=== PATIENT | female | born 1990 | race Caucasian/White ===

== ENCOUNTER 2017-11-05 08:52 | Emergency (ER) | payer MEDICAID ==
[2017-11-05] MEDS ORDERED: Ondansetron 4 MG/2 ML SDV IVPUSH ONE (09:41)
[2017-11-05] MEDS ORDERED: Sodium Chloride 0.9% 10 ML Syringe FLUSH PRN (09:41)
[2017-11-05] MEDS ORDERED: Sodium Chloride 0.9% 1,000 ML IV SCH (09:45)
--- NOTE | 2017-11-05 10:27 | EDM.PDOC ---
ED HPI GENERAL MEDICAL PROBLEM - General Chief Complaint: Headache Stated Complaint: HEADACHE/WEAKNESS Time Seen by Provider: 11/05/17 09:42 Source of Information: Reports: Patient, RN Notes Reviewed - History of Present Illness INITIAL COMMENTS - FREE TEXT/NARRATIVE: 27-year-old female is in with onset of headache abdominal discomfort, fever, chills, generalized achiness about 3 or 4 days ago. She then felt better a day later and then started becoming more ill again yesterday. She does continue with the headache, chills, achiness but also now has had severe nausea and frequent repetitive diarrhea. Of interest she has 2 children at home have also have had very severe repetitive diarrhea with them becoming ill about 3 days ago. She continues to feel very nauseated today. Her mouth is getting dry. She feels weak dizzy lightheaded when standing. She had many episodes of diarrhea yesterday, none yet today. Headache Pain Score (Numeric/FACES): 8 - Related Data Allergies Allergy/AdvReac Type Severity Reaction Status Date / Time Penicillins Allergy Hives Verified 11/05/17 09:06 Home Meds: Home Meds . [No Known Home Meds] 11/05/17 [History] Past Medical History - Past Health History Medical/Surgical History: Denies Medical/Surgical History Psychiatric History: Reports: Anxiety, Depression - Past Surgical History GI Surgical History: Reports: Cholecystectomy Female Surgical History: Reports: Section Musculoskeletal Surgical History: Reports: Other (See Below) Other Musculoskeletal Surgeries/Procedures:: knee surgery Social & Family History - Family History Family Medical History: Noncontributory - Tobacco Use Smoking Status *Q: Never Smoker - Recreational Drug Use Recreational Drug Use: No ED ROS GENERAL - Review of Systems Review Of Systems: See Below Constitutional: Reports: Fever (Low-grade, gone), Chills HEENT: Denies: Rhinitis, Throat Pain Respiratory: Denies: Shortness of Breath, Pleuritic Chest Pain, Cough Cardiovascular: Denies: Chest Pain GI/Abdominal: Reports: Abdominal Pain, Diarrhea (Mild intermittent cramping, gone frequent, watery, repetitive, severe yesterday, much better today), Decreased Appetite, Nausea. Denies: Vomiting Musculoskeletal: Reports: Other Skin: Denies: Rash (Generalized achiness) Neurological: Reports: Dizziness, Headache - Physical Exam Exam: See Below General Appearance: Alert, Mild Distress Eye Exam: Bilateral Eye: PERRL Throat/Mouth: Other (Oral mucosa dry) Head Exam: Atraumatic. No: Facial Swelling Neck: Supple, Full Range of Motion Respiratory/Chest: No Respiratory Distress, Lungs Clear, Normal Breath Sounds Cardiovascular: Tachycardia GI/Abdominal: Soft, Non-Tender. No: Guarding Neuro Exam (Abbreviated): Alert, Oriented, No Motor/Sensory Deficits Back Exam: Normal Inspection Extremities: Normal Inspection, Normal Range of Motion Psychiatric: Normal Affect, Normal Mood Skin Exam: Warm, Dry, Normal Color, No Rash Course - Vital Signs Last Recorded V/S: Last Vital Signs Temp 96.7 F 11/05/17 11:20 Pulse 102 H 11/05/17 09:01 Resp 15 11/05/17 11:20 BP 137/84 11/05/17 11:20 Pulse Ox 98 11/05/17 11:20 Orthostatic Blood Pressure [ 135/108 Standing] Orthostatic Blood Pressure [ 146/102 Sitting] Orthostatic Blood Pressure [ 154/93 Supine] - Orders/Labs/Meds Orders: Active Orders 24 hr Category Date Time Status Peripheral IV Care [RC] . DIRECTED Care 11/05/17 09:42 Active Ketorolac [Toradol] Med 11/05/17 11:15 Active 30 mg IVPUSH ONETIME Sodium Chloride 0.9% [Normal Saline] 1,000 ml Med 11/05/17 09:45 Active IV ONETIME Sodium Chloride 0.9% [Saline Flush] Med 11/05/17 09:41 Active 10 ml FLUSH ASDIRECTED PRN Peripheral IV Insertion Adult [OM.PC] Stat Oth 11/05/17 09:41 Ordered Medication Orders Sodium Chloride (Normal Saline) 1,000 mls @ 999 mls/hr IV ONETIME KARLOS Last Admin: 11/05/17 10:01 Dose: 999 mls/hr Ketorolac Tromethamine (Toradol) 30 mg IVPUSH ONETIME KARLOS Last Admin: 11/05/17 11:14 Dose: 30 mg Sodium Chloride (Saline Flush) 10 ml FLUSH ASDIRECTED PRN PRN Reason: Keep Vein Open Last Admin: 11/05/17 09:45 Dose: 10 ml Labs: Laboratory Tests 11/05/17 11/05/17 Range/Units 08:30 08:30 WBC 13.50 H (3.98-10.04) K/mm3 RBC 4.23 (3.98-5.22) M/mm3 Hgb 11.5 (11.2-15.7) gm/L Hct 36.5 (34.1-44.9) % MCV 86.3 (79.4-94.8) fl MCH 27.2 (25.6-32.2) pg MCHC 31.5 L (32.2-35.5) g/dl RDW Std Deviation 38.7 (36.4-46.3) fL Plt Count 434 H (182-369) K/mm3 MPV 9.2 L (9.4-12.3) fl Neut % (Auto) 82.9 H (34.0-71.1) % Lymph % (Auto) 10.8 L (19.3-51.7) % Cecil % (Auto) 5.2 (4.7-12.5) % Eos % (Auto) 0.6 L (0.7-5.8) Baso % (Auto) 0.2 (0.1-1.2) % Neut # (Auto) 11.19 H (1.56-6.13) K/mm3 Lymph # (Auto) 1.46 (1.18-3.74) K/mm3 Cecil # (Auto) 0.70 H (0.24-0.36) K/mm3 Eos # (Auto) 0.08 (0.04-0.36) K/mm3 Baso # (Auto) 0.03 (0.01-0.08) K/mm3 Sodium 138 (136-145) mEq/L Potassium 3.8 (3.5-5.1) mEq/L Chloride 101 (98-107) mEq/L Carbon Dioxide 25 (21-32) mEq/L Anion Gap 15.8 H (5-15) BUN 7 (7-18) mg/dL Creatinine 0.7 (0.55-1.02) mg/dL Est Cr Clr Drug Dosing 129.39 mL/min Estimated GFR (MDRD) > 60 (>60) mL/min BUN/Creatinine Ratio 10.0 L (14-18) Glucose 93 (74-106) mg/dL Calcium 8.4 L (8.5-10.1) mg/dL Total Bilirubin 0.3 (0.2-1.0) mg/dL AST 24 (15-37) U/L ALT 43 (14-59) U/L Alkaline Phosphatase 116 (46-116) U/L Total Protein 7.7 (6.4-8.2) g/dl Albumin 3.4 (3.4-5.0) g/dl Globulin 4.3 gm/dL Albumin/Globulin Ratio 0.8 L (1-2) Meds: Medications Generic Name Dose Route Start Last Admin Trade Name Freq PRN Reason Stop Dose Admin Sodium Chloride 1,000 mls @ 999 mls/hr 11/05/17 09:45 11/05/17 10:01 Normal Saline IV 999 mls/hr ONETIME KARLOS Administration Ketorolac Tromethamine 30 mg 11/05/17 11:15 11/05/17 11:14 Toradol IVPUSH 30 mg ONETIME KARLOS Administration Sodium Chloride 10 ml 11/05/17 09:41 11/05/17 09:45 Saline Flush FLUSH 10 ml ASDIRECTED PRN Administration Keep Vein Open Discontinued Medications Generic Name Dose Route Start Last Admin Trade Name Freq PRN Reason Stop Dose Admin Diphenhydramine HCl 25 mg 11/05/17 11:06 11/05/17 11:14 Benadryl IVPUSH 11/05/17 11:07 25 mg ONETIME ONE Administration Metoclopramide HCl 10 mg 11/05/17 11:06 11/05/17 11:14 Reglan IVPUSH 11/05/17 11:07 10 mg ONETIME ONE Administration Ondansetron HCl 4 mg 11/05/17 09:41 11/05/17 10:02 Zofran IVPUSH 11/05/17 09:42 4 mg ONETIME ONE Administration - Re-Assessments/Exams Free Text/Narrative Re-Assessment/Exam: 11/05/17 11:59 Feeling quite a lot better after 1 L of IV fluid, Zofran, Reglan, Benadryl, and Toradol IV. She is drinking small sips of water. She has had to void. Her mouth feels less dry. She does feel up to going home. Discharge instructions as documented. Departure - Departure Time of Disposition: 12:00 Disposition: Home, Self-Care 01 Condition: Fair Clinical Impression: Viral syndrome, Dehydration Headache Qualifiers: Headache type: unspecified Headache chronicity pattern: acute headache Intractability: not intractable Qualified Code(s): R51 - Headache Diarrhea Qualifiers: Diarrhea type: unspecified type Qualified Code(s): R19.7 - Diarrhea, unspecified - Discharge Information Referrals: Susan Gregorio, PROGRAM COORDINATOR [employer]UCATION [Primary Care Provider] - Forms: ED Department Discharge Additional Instructions: Clear liquids only until late this evening or even better tomorrow morning. Than very careful bland diet as tolerated. Begin probiotic and take that 2-3 times daily for the next week. Clinic if not much better within 2-3 days as expected. Return to ED if symptoms worsening in any way. - My Orders Last 24 Hours: My Active Orders 11/05/17 09:41 Sodium Chloride 0.9% [Saline Flush] 10 ml FLUSH ASDIRECTED PRN Peripheral IV Insertion Adult [OM.PC] Stat 11/05/17 09:42 Peripheral IV Care [RC] . DIRECTED 11/05/17 09:45 Sodium Chloride 0.9% [Normal Saline] 1,000 ml IV ONETIME 11/05/17 11:15 Ketorolac [Toradol] 30 mg IVPUSH ONETIME - Assessment/Plan Last 24 Hours: My Active Orders 11/05/17 09:41 Sodium Chloride 0.9% [Saline Flush] 10 ml FLUSH ASDIRECTED PRN Peripheral IV Insertion Adult [OM.PC] Stat 11/05/17 09:42 Peripheral IV Care [RC] . DIRECTED 11/05/17 09:45 Sodium Chloride 0.9% [Normal Saline] 1,000 ml IV ONETIME 11/05/17 11:15 Ketorolac [Toradol] 30 mg IVPUSH ONETIME
[2017-11-05] MEDS ORDERED: Metoclopramide 10 MG/2 ML SDV IVPUSH ONE (11:06)
[2017-11-05] MEDS ORDERED: diphenhydrAMINE 50 MG/ML SDV IVPUSH ONE (11:06)
[2017-11-05] MEDS ORDERED: Ketorolac 30 MG/ML SDV IVPUSH SCH (11:15)
== END 2017-11-05 12:10 | disposition home or self-care (01) ==
LOC: JD.ED 08:52
DX: B34.9 Viral infection, unspecified (principal); E86.0 Dehydration; R51 Headache; R19.7 Diarrhea, unspecified; Z88.0 Allergy status to penicillin
CPT/HCPCS: 36415; 80053; 85025; 96361; 96374; 96375; 99285; J1200; J1885; J2405; J2765; J7040; J7050; 99284

== ENCOUNTER 2019-11-05 19:25 | Emergency (ER) | payer BC, MEDICAID ==
[2019-11-05] MEDS ORDERED: Dexamethasone 10 MG/ML SDV IM ONE (20:02)
[2019-11-05] MEDS ORDERED: Ketorolac 60 MG/2 ML SDV IM ONE (20:02)
--- NOTE | 2019-11-05 20:14 | EDM.PDOC ---
ED HPI GENERAL MEDICAL PROBLEM - General Chief Complaint: Respiratory Problem Stated Complaint: FEVER/BODY ACHES/RESP PROBLEMS Time Seen by Provider: 11/05/19 19:44 Source of Information: Reports: Patient, RN Notes Reviewed History Limitations: Reports: No Limitations - History of Present Illness INITIAL COMMENTS - FREE TEXT/NARRATIVE: Patient is a 29-year-old female who presents to the ED for the evaluation of fever/body aches breathing. Patient states she was seen at the clinic today, and she was positive for strep at this time. She was started on a Z-Hal for this. She is complaining of a continued sore throat, fever, generalized body aches, she is denies any sort of cough, or any nausea or vomiting. She has been using an "obscene" amount of Tylenol for pain relief and this is not provided much relief. Patient has not tried any ibuprofen at home. 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 [No Known Home Meds] 11/05/17 [History] Past Medical History Psychiatric History: Reports: Anxiety, Depression - Past Surgical History GI Surgical History: Reports: Cholecystectomy Female Surgical History: Reports: Section Musculoskeletal Surgical History: Reports: Other (See Below) Other Musculoskeletal Surgeries/Procedures:: knee surgery Social & Family History - Family History Family Medical History: Noncontributory - Tobacco Use Smoking Status *Q: Never Smoker - Caffeine Use Caffeine Use: Reports: Soda - Recreational Drug Use Recreational Drug Use: No ED ROS GENERAL - Review of Systems Review Of Systems: See Below Constitutional: Reports: Fever, Chills, Malaise (generalized), Decreased Appetite HEENT: Reports: Throat Pain (ongoing with difficulty swallowing d/t pain) Respiratory: Denies: Shortness of Breath Cardiovascular: Reports: Chest Pain GI/Abdominal: Denies: Abdominal Pain, Constipation, Diarrhea, Nausea, Vomiting Neurological: Denies: Headache ED EXAM, GENERAL - Physical Exam Exam: See Below Exam Limited By: No Limitations General Appearance: Alert, WD/WN, No Apparent Distress Eye Exam: Bilateral Eye: EOMI, Normal Inspection, PERRL Ears: Normal External Exam, Normal Canal, Hearing Grossly Normal, Normal TMs Throat/Mouth: Normal Inspection, Normal Lips, Normal Teeth, Normal Gums, Normal Oropharynx (erythematous oropharynx bilateral swelling noted, pt has slight muffled voice.), Normal Voice, No Airway Compromise Head: Atraumatic, Normocephalic Neck: Normal Inspection Respiratory/Chest: No Respiratory Distress, Lungs Clear, Normal Breath Sounds, No Accessory Muscle Use, Chest Non-Tender Cardiovascular: Normal Peripheral Pulses, Regular Rate, Rhythm, No Murmur Peripheral Pulses: 3+: Radial (L), Radial (R) Extremities: Normal Inspection, Normal Capillary Refill Neurological: Alert, Oriented, Normal Cognition, No Motor/Sensory Deficits Psychiatric: Normal Affect, Normal Mood Skin Exam: Warm, Dry, Intact, Normal Color, No Rash Course - Vital Signs Last Recorded V/S: Last Vital Signs Temp 101.5 F H 11/05/19 19:40 Pulse 125 H 11/05/19 19:40 Resp 20 11/05/19 19:40 BP 129/75 11/05/19 19:40 Pulse Ox 100 11/05/19 19:40 - Orders/Labs/Meds Orders: Active Orders 24 hr Category Date Time Status INFLUENZA A+B AG SCREEN [RM] Stat Lab 11/05/19 19:44 Received Meds: Medications Discontinued Medications Generic Name Dose Route Start Last Admin Trade Name Jessika PRN Reason Stop Dose Admin Dexamethasone 10 mg 11/05/19 20:02 Dexamethasone IM 11/05/19 20:03 ONETIME ONE Ketorolac Tromethamine 60 mg 11/05/19 20:02 Toradol IM 11/05/19 20:03 ONETIME ONE - Re-Assessments/Exams Free Text/Narrative Re-Assessment/Exam: 11/05/19 20:11 Patient presents to the ED for the evaluation of an ongoing sore throat, fever body aches and chills. Influenza swab was obtained at time of triage, and this is negative at this time. At this time I do believe she is suffering sequelae from the strep throat. We will have her continue the antibiotics as prescribed and have her take some ibuprofen and Tylenol every 6 hours for further pain management. Patient was given a shot of Toradol and dexamethasone for the throat swelling. Departure - Departure Time of Disposition: 20:12 Disposition: Home, Self-Care 01 Condition: Fair Clinical Impression: Strep sore throat - Discharge Information *PRESCRIPTION DRUG MONITORING PROGRAM REVIEWED*: No *COPY OF PRESCRIPTION DRUG MONITORING REPORT IN PATIENT JULIO CESAR: No Instructions: Strep Throat, [id number] Referrals: PCP,Not In Area [Primary Care Provider] - Additional Instructions: You were evaluated in the ER today regarding your sore throat/fever/body aches and chills. Your influenza swab was negative at today's visit. It is likely that what you are experiencing are symptoms of the strep throat. Due to the fever, and difficulty swallowing. You were given an injection of Toradol and dexamethasone for your throat swelling at today's visit. Recommend you take ibuprofen 600 mg every 6 hours for the next few days to help alleviate some of the pain and further inflammation. Try to stick to a soft diet, and things to eat that are easy to eat. The antibiotic you were started on today can take up to 48 hours to start providing benefit. Please keep taking these medications as prescribed unless told otherwise by medical provider. Please return to the ER if your symptoms change or worsen. Sepsis Event Note - Evaluation Sepsis Screening Result: No Definite Risk - Focused Exam Vital Signs: Vital Signs Temp Pulse Resp BP Pulse Ox 11/05/19 19:40 101.5 F H 125 H 20 129/75 100 Date Exam was Performed: 11/05/19 Time Exam was Performed: 20:07 - My Orders Last 24 Hours: My Active Orders 11/05/19 19:44 INFLUENZA A+B AG SCREEN [RM] Stat - Assessment/Plan Last 24 Hours: My Active Orders 11/05/19 19:44 INFLUENZA A+B AG SCREEN [RM] Stat
== END 2019-11-05 20:25 | disposition home or self-care (01) ==
LOC: JD.ED 19:25
DX: J02.0 Streptococcal pharyngitis (principal); Z88.0 Allergy status to penicillin
CPT/HCPCS: 87804; 96372; 99283; J1100; J1885